=== PATIENT | female | born 1980 | race Caucasian/White ===

== ENCOUNTER 2018-07-15 12:51 | Emergency (ER) | payer OTHER ==
[~2018-07-15] VITALS: Ht 175.3 cm; Wt 79.4 kg
[~2018-07-15 12:51] MED LIST: AMOXICILLIN 50500 MG PO; ANTIPYRINE-BENZ10 ML OTIC; HYDROCODONE-AP1 EAC6 PO; NEURONTIN 300300 M1 PO; NOHOMEMEDICATIONS; ZOFRAN ODT4 MG PO; ZYRTEC10 MG PO
[2018-07-15 13:38] LABS: URINE BILIRUBIN NEGATIVE (Negative); URINE BLOOD NEGATIVE (Negative); URINE CLARITY CLEAR; URINE COLOR YELLOW; URINE GLUCOSE-RANDOM NEGATIVE (Negative); URINE KETONES NEGATIVE (Negative); URINE LEUKOCYTES-REFLEX NEGATIVE (Negative); URINE NITRITE-REFLEX NEGATIVE (Negative); URINE PROTEIN NEGATIVE (Negative); URINE SPECIFIC GRAVITY <= 1.005 (1.005-1.030); URINE UROBILINOGEN 0.2 E.U./dl (0.2-1.0)
[2018-07-15 14:01] LABS: ABSOLUTE EOSINOPHILS 0.2 thou/uL (0.0-0.7); ABSOLUTE MONOCYTES 0.5 thou/uL (0.0-1.2); ABSOLUTE NEUTROPHILS 5.2 thou/uL (1.6-8.1); BASOPHILS 0.5 %; EOSINOPHILS 2.6 %; HEMATOCRIT 42.1 % (37.0-47.0); HEMOGLOBIN 14.6 gm/dL (12.0-15.0); LYMPHOCYTES 25.3 %; MCH 29.3 pg (26.0-34.0); MCHC 34.7 g/dL (28.0-37.0); MCV 84.3 fL (80.0-100.0); MONOCYTES 5.7 %; MPV 8.1 fl. (7.2-11.1); NUCLEATED RBCS 0 /100WBC; PLATELET COUNT* 202 thou/uL (150-400); POLYS 65.9 %; RDW-CV 14.1 % (10.5-14.5); WBC 7.9 thou/uL (4.0-11.0)
[2018-07-15 14:15] LABS: ALBUMIN 3.4 g/dL (3.4-5.0); ALKALINE PHOSPHATASE 78 U/L (46-116); ANION GAP 6 mmol/L (7-16); BUN 10 mg/dL (7-18); CALCIUM 8.7 mg/dL (8.5-10.1); CHLORIDE 105 mmol/L (98-107); CO2 28 mmol/L (21-32); CREATININE 0.7 mg/dL (0.6-1.3); GLUCOSE 92 mg/dL (70-99); SGOT 16 U/L (15-37); SGPT 46 U/L (30-65); SODIUM 139 mmol/L (136-145); TOTAL BILIRUBIN 0.3 mg/dL (<0.1-1.0); TOTAL PROTEIN 7.3 g/dL (6.4-8.2); TROPONIN-I LEVEL <0.06 ng/mL (<0.06)
--- NOTE | 2018-07-15 15:24 | EKG ---
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
[2018-07-15 16:30] VITALS: BP 141/92
== END 2018-07-15 16:30 | disposition home or self-care (01) ==
LOC: M.ERS 12:51
PROVIDERS: Physician Assistant
DX: R20.0 Anesthesia of skin (principal); Z98.890 Other specified postprocedural states

== ENCOUNTER 2018-09-28 14:23 | Emergency (ER) | payer OTHER ==
[~2018-09-28] VITALS: Ht 175.3 cm; Wt 80.7 kg
[2018-09-28 14:58] LABS: HEMATOCRIT 40.9 % (37.0-47.0); HEMOGLOBIN 14.4 gm/dL (12.0-15.0); MCH 29.6 pg (26.0-34.0); MCHC 35.3 g/dL (28.0-37.0); MCV 83.8 fL (80.0-100.0); MPV 8.2 fl. (7.2-11.1); RBC 4.87 mil/uL (4.20-5.00); WBC 10.3 thou/uL (4.0-11.0)
[2018-09-28 15:15] LABS: ANION GAP 12 mmol/L (7-16); BUN 14 mg/dL (7-18); CALCIUM 8.9 mg/dL (8.5-10.1); CHLORIDE 103 mmol/L (98-107); CO2 26 mmol/L (21-32); CREATININE 0.7 mg/dL (0.6-1.3); GLUCOSE 95 mg/dL (70-99); POTASSIUM 3.8 mmol/L (3.5-5.1); SODIUM 141 mmol/L (136-145); TROPONIN-I LEVEL <0.06 ng/mL (<0.06)
[2018-09-28 16:00] VITALS: BP 130/90
--- NOTE | 2018-09-29 09:38 | EKG ---
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: REJI : 1980 Requested By: Paulo Navarrete Order Number: [id number] MD: Marshall Guzman Measurements Intervals [place] Rate: 86 P: 61 [place]: 150 QRS: 39 QRSD: 90 T: 31 QT: 370 QTc: 443 Interpretive Statements Sinus rhythm Ventricular premature complex Compared to ECG 07/15/2018 13:22:14 Ventricular premature complex(es) now present Electronically Signed On 09-29-2018 9:37:44 CDT by Marshall Guzman [email or web address] <ELECTRONICALLY SIGNED> By: Marshall Guzman MD, [facility] 09/29/18 0937 1427 142 Marshall Guzman MD, FACC /EPI
== END 2018-09-28 16:00 | disposition home or self-care (01) ==
LOC: M.ERS 14:23
PROVIDERS: Emergency Medicine Emergency Medical Services
DX: R00.2 Palpitations (principal); Z98.890 Other specified postprocedural states

== ENCOUNTER 2019-07-25 14:07 | Emergency (ER) | payer OTHER ==
[~2019-07-25] VITALS: Ht 175.3 cm; Wt 81.7 kg
[2019-07-25 14:29] LABS: ABSOLUTE BASOPHILS 0.1 thou/uL (0.0-0.2); ABSOLUTE EOSINOPHILS 0.2 thou/uL (0.0-0.7); ABSOLUTE LYMPHOCYTES 2.6 thou/uL (0.8-5.3); ABSOLUTE MONOCYTES 0.5 thou/uL (0.0-1.2); ABSOLUTE NEUTROPHILS 8.7 thou/uL (1.6-8.1); BASOPHILS 0.4 %; EOSINOPHILS 1.9 %; HEMATOCRIT 42.9 % (37.0-47.0); HEMOGLOBIN 14.7 gm/dL (12.0-15.0); LYMPHOCYTES 21.5 %; MCH 28.6 pg (26.0-34.0); MCHC 34.2 g/dL (28.0-37.0); MCV 83.6 fL (80.0-100.0); MONOCYTES 4.4 %; MPV 8.3 fl. (7.2-11.1); NUCLEATED RBCS 0 /100WBC; PLATELET COUNT* 236 thou/uL (150-400); POLYS 71.8 %; RBC 5.13 mil/uL (4.20-5.00); RDW-CV 14.3 % (10.5-14.5); WBC 12.2 thou/uL (4.0-11.0)
[2019-07-25 14:42] LABS: CALCIUM 8.7 mg/dL (8.5-10.1); CREATININE 0.8 mg/dL (0.6-1.3); POTASSIUM 3.7 mmol/L (3.5-5.1)
[2019-07-25 14:54] LABS: ALBUMIN 3.7 g/dL (3.4-5.0); TOTAL BILIRUBIN 0.4 mg/dL (<0.1-1.0); TOTAL PROTEIN 7.8 g/dL (6.4-8.2)
[2019-07-25 15:02] LABS: URINE BILIRUBIN NEGATIVE (Negative); URINE BLOOD TRACE (Negative); URINE CLARITY CLEAR; URINE COLOR YELLOW; URINE GLUCOSE-RANDOM NEGATIVE (Negative); URINE KETONES NEGATIVE (Negative); URINE LEUKOCYTES-REFLEX NEGATIVE (Negative); URINE NITRITE-REFLEX NEGATIVE (Negative); URINE PROTEIN NEGATIVE (Negative); URINE SPECIFIC GRAVITY <= 1.005 (1.005-1.030); URINE UROBILINOGEN 0.2 E.U./dl (0.2-1.0)
[2019-07-25] MEDS ORDERED: FLEXERIL PO (15:39)
[2019-07-25] MEDS ORDERED: ASPIRIN325 PO (15:39)
[2019-07-25 15:57] VITALS: BP 139/79
--- NOTE | 2019-07-25 20:11 | EKG ---
[place] [address] ELECTROCARDIOGRAM REPORT Name: HUDSON DICKERSON Room: [facility]#: [id number] Admission: 07/25/19 Attend Phys: Discharge: 07/25/19 Date of : 84 Date of Service: 07/25/19 1414 Report #: [id number] THIS REPORT FOR: //name// [facility] ED Test Date: 2019-07-25 Test Time: 14:14:04 Pat Name: HUDSON DICKERSON Department: Room: Gender: F Invas Tech: [facility] : 1980 Requested By: Merry Boucher Order Number: [id number] MD: Marshall Guzman Measurements Intervals [place] Rate: 95 P: 20 FL: 137 QRS: 39 QRSD: 83 T: 25 QT: 352 QTc: 443 Interpretive Statements Sinus rhythm Compared to ECG 09/28/2018 14:27:14 Ventricular premature complex(es) no longer present Electronically Signed On 07-25-2019 20:10:51 CATEGORY SPECIALIST by Marshall Guzman [email or web address] <ELECTRONICALLY SIGNED> By: Marshall Guzman MD, FACC 07/25/192009 1414 1414 Marshall Guzman MD, [facility] /EPI
== END 2019-07-25 15:58 | disposition home or self-care (01) ==
LOC: M.ERS 14:07
PROVIDERS: Physician Assistant
DX: R09.1 Pleurisy (principal); Z98.890 Other specified postprocedural states

== ENCOUNTER 2019-07-31 12:35 | Emergency (ER) | payer OTHER ==
[~2019-07-31] VITALS: Ht 175.3 cm; Wt 81.7 kg
[~2019-07-31 12:35] MED LIST changes: +ASPIRIN325 PO; +FLEXERIL PO
[2019-07-31 13:45] LABS: ABSOLUTE EOSINOPHILS 0.4 thou/uL (0.0-0.7); ABSOLUTE LYMPHOCYTES 1.8 thou/uL (0.8-5.3); ABSOLUTE MONOCYTES 0.4 thou/uL (0.0-1.2); ABSOLUTE NEUTROPHILS 5.1 thou/uL (1.6-8.1); BASOPHILS 0.5 %; EOSINOPHILS 5.2 %; HEMATOCRIT 42.5 % (37.0-47.0); HEMOGLOBIN 14.6 gm/dL (12.0-15.0); LYMPHOCYTES 23.5 %; MCHC 34.5 g/dL (28.0-37.0); MONOCYTES 4.7 %; MPV 8.2 fl. (7.2-11.1); NUCLEATED RBCS 0 /100WBC; PLATELET COUNT* 217 thou/uL (150-400); POLYS 66.1 %; RBC 5.06 mil/uL (4.20-5.00); RDW-CV 14.2 % (10.5-14.5); WBC 7.7 thou/uL (4.0-11.0)
[2019-07-31 13:50] LABS: CALCIUM 8.8 mg/dL (8.5-10.1); CREATININE 0.6 mg/dL (0.6-1.3); POTASSIUM 3.7 mmol/L (3.5-5.1)
[2019-07-31 14:03] LABS: ALBUMIN 3.5 g/dL (3.4-5.0); TOTAL BILIRUBIN 0.3 mg/dL (<0.1-1.0); TOTAL PROTEIN 7.5 g/dL (6.4-8.2)
[2019-07-31 14:25] LABS: URINE BILIRUBIN NEGATIVE (Negative); URINE BLOOD 3+ (Negative); URINE CLARITY CLEAR; URINE COLOR YELLOW; URINE GLUCOSE-RANDOM NEGATIVE (Negative); URINE KETONES NEGATIVE (Negative); URINE LEUKOCYTES-REFLEX NEGATIVE (Negative); URINE NITRITE-REFLEX NEGATIVE (Negative); URINE PROTEIN NEGATIVE (Negative); URINE SPECIFIC GRAVITY 1.015 (1.005-1.030); URINE UROBILINOGEN 0.2 E.U./dl (0.2-1.0)
[2019-07-31 14:36] LABS: BACTERIA-REFLEX 1-9 Few /HPF (None Seen); CASTS None Seen /LPF (None Seen); CRYSTALS None Seen /LPF (None Seen); SQUAMOUS 0-3 Few /LPF (0-3); URINE RBC 0-2 Rare /HPF (0-2); URINE WBC-REFLEX 0-5 Rare /HPF (0-5)
--- NOTE | 2019-07-31 15:34 | EKG ---
[place] [address] ELECTROCARDIOGRAM REPORT Name: HUDSON DICKERSON Room: [facility]#: [id number] Admission: 07/31/19 Attend Phys: Discharge: Date of : 84 Date of Service: 07/31/19 1243 Report #: [id number] THIS REPORT FOR: //name// [facility] ED Test Date: 2019-07-31 Test Time: 12:43:36 Pat Name: HUDSON DICKERSON Department: Room: Gender: Rehab Director: [place] : 1980 Requested By: Marley Merchant Order Number: [id number] MD: Eamon Lopez Measurements Intervals [place] Rate: 102 P: 36 [place]: 137 QRS: 32 QRSD: 87 T: 32 QT: 356 QTc: 464 Interpretive Statements Sinus tachycardia Compared to ECG 07/25/2019 14:14:04 Sinus rhythm no longer present Electronically Signed On 07-31-2019 15:33:40 PILL MACHINE OPERATOR by Eamon Lopez [email or web address] <ELECTRONICALLY SIGNED> By: Eamon Lopez MD, [facility] 07/31/19 1533 1243 1243 Eamon Lopez MD, FAC /EPI
[2019-07-31 17:51] VITALS: BP 132/94
== END 2019-07-31 17:52 | disposition home or self-care (01) ==
LOC: M.ERS 12:35
PROVIDERS: Nurse Practitioner Family
DX: R07.89 Other chest pain (principal); Z98.890 Other specified postprocedural states

== ENCOUNTER → 2020-04-30 | Outpatient (CLI) | payer OTHER | LOC: M.RAD 09:30 | PROVIDERS: ATTEND Family Medicine | DX: Z12.31 Encounter for screening mammogram for malignant neoplasm of breast (principal) ==

== ENCOUNTER 2021-03-29 12:41 | Emergency (ER) | payer MEDICAID ==
[~2021-03-29] VITALS: Ht 175.3 cm; Wt 74.4 kg
[2021-03-29 13:15] VITALS: BP 168/108
--- NOTE | 2021-03-30 10:02 | EKG ---
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 03/30/21 1001 1245 1245 Akil Dave MD, [facility] /EPI
== END 2021-03-29 13:15 | disposition home or self-care (01) ==
LOC: M.ERS 12:41
DX: R07.89 Other chest pain (principal); Z98.890 Other specified postprocedural states

== ENCOUNTER → 2021-05-07 | Outpatient (CLI) | payer OTHER | LOC: M.CT 12:37 | PROVIDERS: ATTEND Internal Medicine Cardiovascular Disease | DX: Z13.6 Encounter for screening for cardiovascular disorders (principal) ==

== ENCOUNTER 2021-07-26 18:07 | Emergency (ER) | payer OTHER, MEDICAID ==
[~2021-07-26] VITALS: Ht 175.3 cm; Wt 79.4 kg
[2021-07-26] MEDS ORDERED: AUGMENTIN 500-1 EACH PO (18:16)
[2021-07-26 20:17] LABS: ABSOLUTE EOSINOPHILS 0.3 thou/uL (0.0-0.7); ABSOLUTE LYMPHOCYTES 2.6 thou/uL (0.8-5.3); ABSOLUTE MONOCYTES 0.5 thou/uL (0.0-1.2); ABSOLUTE NEUTROPHILS 5.9 thou/uL (1.6-8.1); BASOPHILS 0.4 %; EOSINOPHILS 2.9 %; HEMATOCRIT 40.6 % (37.0-47.0); LYMPHOCYTES 27.5 %; MCH 28.9 pg (26.0-34.0); MCHC 34.5 g/dL (28.0-37.0); MCV 83.8 fL (80.0-100.0); MONOCYTES 5.7 %; MPV 7.5 fl. (7.2-11.1); NUCLEATED RBCS 0 /100WBC; PLATELET COUNT* 275 thou/uL (150-400); POLYS 63.5 %; RBC 4.84 mil/uL (4.20-5.00); RDW-CV 13.2 % (10.5-14.5); WBC 9.3 thou/uL (4.0-11.0)
[2021-07-26 20:26] LABS: CALCIUM 9.1 mg/dL (8.5-10.1); CREATININE 0.6 mg/dL (0.6-1.3)
[2021-07-26 21:46] VITALS: BP 180/104
== END 2021-07-26 21:46 | disposition home or self-care (01) ==
LOC: M.ERS 18:07
PROVIDERS: Physician Assistant Medical
DX: E04.1 Nontoxic single thyroid nodule (principal); Z79.899 Other long term (current) drug therapy